=== PATIENT | male | born 1950 | race Caucasian/White ===

== ENCOUNTER 2018-08-22 12:13 | Emergency (ER) | payer MEDICARE, OTHER, SELFPAY ==
[2018-08-22] MEDS: SODIUM CHLORIDE 0.9% 1,000 ML 1000 ML IV ×2 (12:15→13:46)
--- NOTE | 2018-08-22 12:17 | ED.SYNCOPE ---
HPI - Syncope General Chief Complaint: Syncope Stated Complaint: Syncopal Time Seen by Provider: 08/22/18 12:15 Source: patient and EMS Mode of arrival: EMS Limitations: no limitations History of Present Illness HPI narrative: 67-year-old male smoker presents with by EMS for evaluation of a syncopal episode. The patient was at the [facility] and had just had a large episode of diarrhea and stood up quickly and then had a syncopal episode. He admittedly had not had much water over the past day or 2 and has been feeling parched. He denies any chest pain or shortness of breath. He denies any injuries as a consequence of the fall. MD complaint: loss of consciousness and felt faint Onset (ago): minute(s) -: second(s) Prodromal symptoms: vision changes and lightheaded Witnessed: no Context: standing up Injuries sustained associated with event: none Current symptoms: none Related Data Home Medications Medication Instructions Recorded Confirmed CYANOCOBALAMIN (VITAMIN B-12) 1,000 mcg PO BID #0 12/05/10 (Vitamin B-12) FOLIC ACID (#FOLIC ACID) 800 mcg PO Q DAY #0 12/05/10 FOLIC ACID/VIT A/VIT B1/VIT 1 tab PO Q DAY #0 12/05/10 (#MULTIVITAMIN) lisinopril 20 mg PO 08/22/18 Previous Rx's Medication Instructions Recorded trazodone 1 tab PO HS #90 tab 03/06/17 hydroxyzine pamoate 50 mg capsule 50 mg PO TID #90 cap 09/19/17 hydrochlorothiazide 25 mg tablet 12.5 mg PO QDAY #90 tab 10/25/17 labetalol 300 mg tablet 300 mg PO BID #180 tab 06/23/18 levothyroxine 50 mcg tablet 50 mcg PO QAM #90 tab 06/23/18 Allergies Allergy/AdvReac Type Severity Reaction Status Date / Time No Known Drug Allergies Allergy Verified 08/22/18 15:18 Review of Systems Constitutional Denies chills, Denies fever(s), Denies lethargy and Reports weakness Eyes Denies change in vision, Denies eye discharge, Denies irritation and Denies loss of vision ENT Ears, Nose, Mouth, and Throat: Denies change in voice, Denies neck pain and Denies sore throat Cardiovascular Denies chest pain, Denies irregular heart rhythm, Denies lightheadedness, Denies palpitations, Denies dyspnea, Denies dyspnea on exertion and Denies orthopnea Respiratory Denies cough, Denies dyspnea, Denies dyspnea on exertion and Denies wheezing Gastrointestinal Gastrointestinal: Denies abdominal pain, Denies change in bowel habits, Denies diarrhea, Denies nausea and Denies vomiting Genitourinary Denies hematuria, Denies flank pain, Denies urinary incontinence and Denies urinary urgency Musculoskeletal Denies neck pain Integumentary/Breasts Denies pruritus, Denies erythema, Denies rash and Denies wounds Neurologic Denies confusion, Denies loss of vision and Reports weakness Psychiatric Denies anxiety, Denies confusion, Denies depression, Denies homicidal ideation and Denies suicidal ideation Endocrine Denies palpitations Hematologic/Lymphatic Denies easy bruising Allergic/Immunologic Denies wheezing PFSH Social History Smoking Status: Current every day smoker Social History Smoking Status: Current every day smoker Exam Narrative Exam Narrative: GENERAL: 67-year-old male appears stated age, no obvious significant distress HEAD: Atraumatic. Normocephalic. No temporal or scalp tenderness. EYES: Pupils equal round and reactive. Extraocular motions intact. No scleral icterus. No injection or drainage. ENT: Dry mucous membranes Nose without bleeding, purulent drainage or septal hematoma. Throat without erythema, tonsillar hypertrophy or exudate. Uvula midline. Airway patent. NECK: Trachea midline. No JVD or lymphadenopathy. Supple, nontender, no meningeal signs. CARDIOVASCULAR: Regular rate and rhythm without murmurs, gallops, or rubs. RESPIRATORY: Clear to auscultation. Breath sounds equal bilaterally. No wheezes, rales, or rhonchi. GASTROINTESTINAL: Abdomen soft, non-tender, nondistended. No hepato-splenomegaly, or palpable masses. No guarding. EXTREMITIES: No clubbing, cyanosis, or edema. No joint tenderness, effusion, or edema noted. BACK: Nontender without deformity or crepitance. No flank tenderness. NEURO: AOx3. SKIN: No rash or erythema. Initial Vital Signs Initial Vital Signs: Vital Signs Temperature 98.3 F 08/22/18 12:20 Pulse Rate 88 08/22/18 12:20 Respiratory Rate 08/22/18 12:20 Blood Pressure 103/71 08/22/18 12:20 Pulse Oximetry 95 08/22/18 12:20 Course Orders Ordered: ED Orders 08/22/18 12:16 EKG-12 Lead Stat 08/22/18 12:45 Complete Blood Count AUTO DIFF Stat Comprehensive Metabolic Panel Stat Magnesium Stat Troponin & CK Cardiac Panel Stat Discontinued Medications Sodium Chloride (Normal Saline 0.9%) 1,000 mls @ 1,000 mls/hr IV BOLUS ONE Stop: 08/22/18 13:15 Last Infusion: 08/22/18 13:46 Dose: 0 mls/hr Admin: 08/22/18 12:15 Dose: 1,000 mls/hr Sodium Chloride (Normal Saline 0.9%) 1,000 mls @ 1,000 mls/hr IV BOLUS ONE Stop: 08/22/18 14:21 Last Infusion: 08/22/18 15:19 Dose: 0 mls/hr Admin: 08/22/18 13:46 Dose: 1,000 mls/hr Reevaluation(s) Reevaluation #1: Patient feels a near complete resolution of symptoms after fluids Vital Signs - 8 hr 08/22/18 12:20 08/22/18 12:41 08/22/18 13:05 Temperature 98.3 F Pulse Rate 88 88 86 Respiratory Rate 19 19 14 Blood Pressure 103/71 Blood Pressure [Left Arm] 111/66 103/60 Pulse Oximetry 95 95 08/22/18 14:55 08/22/18 15:15 Temperature Pulse Rate 83 94 H Respiratory Rate 12 18 Blood Pressure 129/66 Blood Pressure [Left Arm] 115/62 Pulse Oximetry 97 99 MDM - Syncope Lab Data Result diagrams: 08/22/18 12:45 08/22/18 12:45 Lab Results 08/22/18 08/22/18 Range/Units 12:45 12:45 WBC 12.7 H (4.5-11.0) X10^3/uL RBC 5.39 (4.5-5.9) X10^6/uL Hgb 15.2 (13.5-17.5) g/dL Hct 47.3 (41-53) % MCV 87.8 (80-100) fL MCH 28.2 (26-34) PG MCHC 32.1 (30-36) % RDW 14.7 (11.6-14.8) % Plt Count 260 (150-400) X10^3/uL Neut % (Auto) 88.6 H (50-75) % Lymph % (Auto) 3.6 L (25-40) % [place] % (Auto) 6.7 (3-14) % Eos % (Auto) 0.7 L (2-4) % Baso % (Auto) 0.4 (0-2) % Neut # (Auto) 58054 H (0762-2167) /uL Lymph # (Auto) 500 L (7875-2676) /uL [place] # (Auto) 800 (0-900) /uL Eos # (Auto) 100 (0-450) /uL Baso # (Auto) 0 (0-100) /uL Sodium 143 (137-145) mmol/L Potassium 4.9 (3.4-5.1) mmol/L Chloride 112 H (98-107) mmol/L Carbon Dioxide 20 L (22-32) mmol/L BUN 20 (9-20) mg/dL Creatinine 2.10 H (0.66-1.25) mg/dL Estimated GFR 31.6 L (>60) mL/min BUN/Creatinine Ratio 9.5 (6-22) Glucose 116 H (80-110) mg/dL Calcium 9.1 (8.4-10.2) mg/dL Magnesium 1.9 (1.6-2.3) mg/dL Total Bilirubin 1.1 (0.2-1.3) mg/dL AST 21 (17-59) IU/L ALT 14 L (21-72) IU/L Alkaline Phosphatase 58 (38-126) U/L Total Creatine Kinase 46 L (55-170) U/L CK-MB (CK-2) TNP CK-MB (CK-2) Rel Index TNP Troponin I < 0.012 (0.01-0.034) ng/mL Total Protein 8.6 H (6.3-8.2) g/dL Albumin 4.5 (3.5-5.0) g/dL Globulin 4.1 (1.7-4.1) g/dL Albumin/Globulin Ratio 1.1 (1.0-2.8) MDM Narrative Medical decision making narrative: Patient with syncopal episode after episode of diarrhea and standing up quickly. Clinically dehydrated with a bump in his creatinine. 2 L of fluid brings patient back to clinical background, stable orthostatics. Discharge Plan Departure Patient Disposition: Home Clinical Impression: Diarrhea Qualifiers: Diarrhea type: unspecified type Qualified Code(s): R19.7 - Diarrhea, unspecified Syncope Qualifiers: Syncope type: unspecified Qualified Code(s): R55 - Syncope and collapse Discharge Date/Time: 08/22/18 15:45 Interventions: ED Discharge Assessment Last Done: 08/22/18 15:15 Instructions: DI for Syncope in Adults (Fainting) Activity Restrictions/Additional Instructions: 1. Drink plenty of fluids with frequent small sips. 2. For the next 24 hours a clear liquid diet is advised. After that please employ a brat diet which would include bananas, rice, apples, toast. 3. Please take medications as directed. 4. Please follow-up with your doctor in the next 1-2 days. Call the office for an appointment. 5. Please return to the emergency Department for any worsening or persistent symptoms, such as increasing pain or fever. Prescriptions: No Action CYANOCOBALAMIN (VITAMIN B-12) (Vitamin B-12) 1,000 mcg PO BID Qty: 0 RF: 0 FOLIC ACID (#FOLIC ACID) 800 mcg PO Q DAY Qty: 0 RF: 0 FOLIC ACID/VIT A/VIT B1/VIT (#MULTIVITAMIN) 1 tab PO Q DAY Qty: 0 RF: 0 trazodone 100 MG tablet 1 tab PO HS Qty: 90 RF: 1 hydroxyzine pamoate [Vistaril] 50 mg capsule 50 mg PO TID Qty: 90 RF: 1 hydrochlorothiazide 25 mg tablet 12.5 mg PO QDAY Qty: 90 RF: 1 labetalol 300 mg tablet 300 mg PO BID Qty: 180 RF: 0 levothyroxine 50 mcg tablet 50 mcg PO QAM Qty: 90 RF: 0 lisinopril 20 mg tablet 20 mg PO RF: 0 Referrals: Aguila Solo MD [Primary Care Provider] -
[2018-08-22 12:20] VITALS: BP 103/71; PULSE 88; RESP 19; TEMP 36.8; O2SAT 95; BMI 32.8
[2018-08-22 12:41] VITALS: BP 111/66; PULSE 88; RESP 19; O2SAT 95
[2018-08-22 13:05] VITALS: BP 103/60; PULSE 86; RESP 14
[2018-08-22 13:06] LABS: Add Manual Diff / Slide Review NO; Basophils Absolute Auto 0 /uL (0-100); Basophils Percent Auto 0.4 % (0-2); Eosinophils Absolute Auto 100 /uL (0-450); Eosinophils Percent Auto 0.7 % (2-4); Hematocrit 47.3 % (41-53); Hemoglobin 15.2 g/dL (13.5-17.5); Lymphocytes Absolute Auto 500 /uL (1100-4500); Lymphocytes Percent Auto 3.6 % (25-40); Mean Corpuscular HGB Conc 32.1 % (30-36); Mean Corpuscular Hemoglobin 28.2 PG (26-34); Mean Corpuscular Volume 87.8 fL (80-100); Monocytes Absolute Auto 800 /uL (0-900); Monocytes Percent Auto 6.7 % (3-14); Neutrophils Absolute Auto 11300 /uL (1500-7000); Neutrophils Percent Auto 88.6 % (50-75); Platelet Count 260 X10^3/uL (150-400); Red Blood Cell Count 5.39 X10^6/uL (4.5-5.9); Red Cell Distribution Width 14.7 % (11.6-14.8); White Blood Cell Count 12.7 X10^3/uL (4.5-11.0)
[2018-08-22 13:10] LABS: Alanine Aminotransferase 14 IU/L (21-72); Albumin 4.5 g/dL (3.5-5.0); Albumin Globulin Ratio 1.1 (1.0-2.8); Alkaline Phosphatase 58 U/L (38-126); Aspartate Aminotransferase 21 IU/L (17-59); BUN Creatinine Ratio 9.5 (6-22); Bilirubin Total 1.1 mg/dL (0.2-1.3); Blood Urea Nitrogen 20 mg/dL (9-20); Calcium 9.1 mg/dL (8.4-10.2); Carbon Dioxide 20 mmol/L (22-32); Chloride 112 mmol/L (98-107); Creatine Kinase 46 U/L (55-170); Estimated Glomerular Filt Rate 31.6 mL/min (>60); Globulin 4.1 g/dL (1.7-4.1); Glucose 116 mg/dL (80-110); HEMOLYSIS 27 (0-50); Magnesium 1.9 mg/dL (1.6-2.3); Potassium 4.9 mmol/L (3.4-5.1); Sodium 143 mmol/L (137-145); Total Protein 8.6 g/dL (6.3-8.2)
[2018-08-22 13:22] LABS: Troponin I < 0.012 ng/mL (0.01-0.034)
[2018-08-22 14:55] VITALS: BP 115/62; PULSE 83; RESP 12; O2SAT 97
--- NOTE | 2018-08-22 15:07 | ED_ITS ---
HPI - Syncope General Chief Complaint: Syncope Stated Complaint: Syncopal Time Seen by Provider: 08/22/18 12:15 Source: patient and EMS Mode of arrival: EMS Limitations: no limitations History of Present Illness HPI narrative: 67-year-old male smoker presents with by EMS for evaluation of a syncopal episode. The patient was at the [facility] and had just had a large episode of diarrhea and stood up quickly and then had a syncopal episode. He admittedly had not had much water over the past day or 2 and has b een feeling parched. He denies any chest pain or shortness of breath. He denies any injuries as a consequence of the fall. MD complaint: loss of consciousness and felt faint Onset (ago): minute(s) -: second(s) Prodromal symptoms: vision changes and lightheaded Witnessed: no Context: standing up Injuries sustained associated with event: none Current symptoms: none Related Data Home Medications Medication Instructions Recorded Confirmed CYANOCOBALAMIN (VITAMIN B-12) 1,000 mcg PO BID #0 12/05/10 (Vitamin B-12) FOLIC ACID (#FOLIC ACID) 800 mcg PO Q DAY #0 12/05/10 FOLIC ACID/VIT A/VIT B1/VIT 1 tab PO Q DAY #0 12/05/10 (#MULTIVITAMIN) lisinopril 20 mg PO 08/22/18 Previous Rx's Medication Instructions Recorded trazodone 1 tab PO HS #90 tab 03/06/17 hydroxyzine pamoate 50 mg capsule 50 mg PO TID #90 cap 09/19/17 hydrochlorothiazide 25 mg tablet 12.5 mg PO QDAY #90 tab 10/25/17 labetalol 300 mg tablet 300 mg PO BID #180 tab 06/23/18 levothyroxine 50 mcg tablet 50 mcg PO QAM #90 tab 06/23/18 Allergies Allergy/AdvReac Type Severity Reaction Status Date / Time No Known Drug Allergies Allergy Verified 08/22/18 15:18 Review of Systems Constitutional Denies chills, Denies fever(s), Denies lethargy and Reports weakness Eyes Denies change in vision, Denies eye discharge, Denies irritation and Denies loss of vision ENT Ears, Nose, Mouth, and Throat: Denies change in voice, Denies neck pain and Denies sore throat Cardiovascular Denies chest pain, Denies irregular heart rhythm, Denies lightheadedness, Denies palpitations, Denies dyspnea, Denies dyspnea on exertion and Denies orthopnea Respiratory Denies cough, Denies dyspnea, Denies dyspnea on exertion and Denies wheezing Gastrointestinal Gastrointestinal: Denies abdominal pain, Denies change in bowel habits, Denies diarrhea, Denies nausea and Denies vomiting Genitourinary Denies hematuria, Denies flank pain, Denies urinary incontinence and Denies urinary urgency Musculoskeletal Denies neck pain Integumentary/Breasts Denies pruritus, Denies erythema, Denies rash and Denies wounds Neurologic Denies confusion, Denies loss of vision and Reports weakness Psychiatric Denies anxiety, Denies confusion, Denies depression, Denies homicidal ideation and Denies suicidal ideation Endocrine Denies palpitations Hematologic/Lymphatic Denies easy bruising Allergic/Immunologic Denies wheezing PFSH Social History Smoking Status: Current every day smoker Social History Smoking Status: Current every day smoker Exam Narrative Exam Narrative: GENERAL: 67-year-old male appears stated age, no obvious significant distress HEAD: Atraumatic. Normocephalic. No temporal or scalp tenderness. EYES: Pupils equal round and reactive. Extraocular motions intact. No scleral icterus. No injection or drainage. ENT: Dry mucous membranes Nose without bleeding, purulent drainage or septal hematoma. Throat without erythema, tonsillar hypertrophy or exudate. Uvula midline. Airway patent. NECK: Trachea midline. No JVD or lymphadenopathy. Supple, nontender, no meningeal signs. CARDIOVASCULAR: Regular rate and rhythm without murmurs, gallops, or rubs. RESPIRATORY: Clear to auscultation. Breath sounds equal bilaterally. No wheezes, rales, or rhonchi. GASTROINTESTINAL: Abdomen soft, non-tender, nondistended. No hepato-splenomegaly , or palpable masses. No guarding. EXTREMITIES: No clubbing, cyanosis, or edema. No joint tenderness, effusion, or edema noted. BACK: Nontender without deformity or crepitance. No flank tenderness. NEURO: AOx3. SKIN: No rash or erythema. Initial Vital Signs Initial Vital Signs: Vital Signs Temperature 98.3 F 08/22/18 12:20 Pulse Rate 88 08/22/18 12:20 Respiratory Rate 19 08/22/18 12:20 Blood Pressure 103/71 08/22/18 12:20 Pulse Oximetry 95 08/22/18 12:20 Course Orders Ordered: ED Orders 08/22/18 12:16 EKG-12 Lead Stat 08/22/18 12:45 Complete Blood Count AUTO DIFF Stat Comprehensive Metabolic Panel Stat Magnesium Stat Troponin & CK Cardiac Panel Stat Discontinued Medications Sodium Chloride (Normal Saline 0.9%) 1,000 mls @ 1,000 mls/hr IV BOLUS ONE Stop: 08/22/18 13:15 Last Infusion: 08/22/18 13:46 Dose: 0 mls/hr Admin: 08/22/18 12:15 Dose: 1,000 mls/hr Sodium Chloride (Normal Saline 0.9%) 1,000 mls @ 1,000 mls/hr IV BOLUS ONE Stop: 08/22/18 14:21 Last Infusion: 08/22/18 15:19 Dose: 0 mls/hr Admin: 08/22/18 13:46 Dose: 1,000 mls/hr Reevaluation(s) Reevaluation #1: Patient feels a near complete resolution of symptoms after fluids Vital Signs - 8 hr 08/22/18 12:20 08/22/18 12:41 08/22/18 13:05 Temperature 98.3 F Pulse Rate 88 88 86 Respiratory Rate 19 19 14 Blood Pressure 103/71 Blood Pressure [Left Arm] 111/66 103/60 Pulse Oximetry 95 95 08/22/18 14:55 08/22/18 15:15 Temperature Pulse Rate 83 94 H Respiratory Rate 12 18 Blood Pressure 129/66 Blood Pressure [Left Arm] 115/62 Pulse Oximetry 97 99 MDM - Syncope Lab Data Result diagrams: 08/22/18 12:45 08/22/18 12:45 Lab Results 08/22/18 08/22/18 Range/Units 12:45 12:45 WBC 12.7 H (4.5-11.0) X10^3/uL RBC 5.39 (4.5-5.9) X10^6/uL Hgb 15.2 (13.5-17.5) g/dL Hct 47.3 (41-53) % MCV 87.8 (80-100) fL MCH 28.2 (26-34) PG MCHC 32.1 (30-36) % RDW 14.7 (11.6-14.8) % Plt Count 260 (150-400) X10^3/uL Neut % (Auto) 88.6 H (50-75) % Lymph % (Auto) 3.6 L (25-40) % [place] % (Auto) 6.7 (3-14) % Eos % (Auto) 0.7 L (2-4) % Baso % (Auto) 0.4 (0-2) % Neut # (Auto) 64509 H (6331-3103) /uL Lymph # (Auto) 500 L (3348-7292) /uL [place] # (Auto) 800 (0-900) /uL Eos # (Auto) 100 (0-450) /uL Baso # (Auto) 0 (0-100) /uL Sodium 143 (137-145) mmol/L Potassium 4.9 (3.4-5.1) mmol/L Chloride 112 H (98-107) mmol/L Carbon Dioxide 20 L (22-32) mmol/L BUN 20 (9-20) mg/dL Creatinine 2.10 H (0.66-1.25) mg/dL Estimated GFR 31.6 L (>60) mL/min BUN/Creatinine Ratio 9.5 (6-22) Glucose 116 H (80-110) mg/dL Calcium 9.1 (8.4-10.2) mg/dL Magnesium 1.9 (1.6-2.3) mg/dL Total Bilirubin 1.1 (0.2-1.3) mg/dL AST 21 (17-59) IU/L ALT 14 L (21-72) IU/L Alkaline Phosphatase 58 (38-126) U/L Total Creatine Kinase 46 L (55-170) U/L CK-MB (CK-2) TNP CK-MB (CK-2) Rel Index TNP Troponin I < 0.012 (0.01-0.034) ng/mL Total Protein 8.6 H (6.3-8.2) g/dL Albumin 4.5 (3.5-5.0) g/dL Globulin 4.1 (1.7-4.1) g/dL Albumin/Globulin Ratio 1.1 (1.0-2.8) MDM Narrative Medical decision making narrative: Patient with syncopal episode after episode of diarrhea and standing up quickly. Clinically dehydrated with a bump in his creatinine. 2 L of fluid brings patient back to clinical background, stable orthostatics. Discharge Plan Departure Patient Disposition: Home Clinical Impression: Diarrhea Qualifiers: Diarrhea type: unspecified type Qualified Code(s): R19.7 - Diarrhea, unspecified Syncope Qualifiers: Syncope type: unspecified Qualified Code(s): R55 - Syncope and collapse Discharge Date/Time: 08/22/18 15:45 Interventions: ED Discharge Assessment Last Done: 08/22/18 15:15 Instructions: DI for Syncope in Adults (Fainting) Activity Restrictions/Additional Instructions: 1. Drink plenty of fluids with frequent small sips. 2. For the next 24 hours a clear liquid diet is advised. After that please employ a brat diet which would include bananas, rice, apples, toast. 3. Please take medications as directed. 4. Please follow-up with your doctor in the next 1-2 days. Call the office for an appointment. 5. Please return to the emergency Department for any worsening or persistent symptoms, such as increasing pain or fever. Prescriptions: No Action CYANOCOBALAMIN (VITAMIN B-12) (Vitamin B-12) 1,000 mcg PO BID Qty: 0 RF: 0 FOLIC ACID (#FOLIC ACID) 800 mcg PO Q DAY Qty: 0 RF: 0 FOLIC ACID/VIT A/VIT B1/VIT (#MULTIVITAMIN) 1 tab PO Q DAY Qty: 0 RF: 0 trazodone 100 MG tablet 1 tab PO HS Qty: 90 RF: 1 hydroxyzine pamoate [Vistaril] 50 mg capsule 50 mg PO TID Qty: 90 RF: 1 hydrochlorothiazide 25 mg tablet 12.5 mg PO QDAY Qty: 90 RF: 1 labetalol 300 mg tablet 300 mg PO BID Qty: 180 RF: 0 levothyroxine 50 mcg tablet 50 mcg PO QAM Qty: 90 RF: 0 lisinopril 20 mg tablet 20 mg PO RF: 0 Referrals: Aguila Solo MD [Primary Care Provider] -
[2018-08-22 15:15] VITALS: BP 129/66; PULSE 94; RESP 18; O2SAT 99
--- NOTE | 2018-08-22 15:37 | PC.NURSE ---
Pt is ambulating successfully with student RN denies dizziness
== END 2018-08-22 15:45 | disposition home or self-care (01) ==
PROVIDERS: Emergency Provider Emergency Medicine; Family Provider Family Medicine; PCP Family Medicine
DX: R55 Syncope and collapse (principal); R19.7 Diarrhea, unspecified
CPT/HCPCS: 36415; 80053; 82550; 83735; 84484; 85025; 93005; 93010; 96360; 96361; 99283; 99284

== ENCOUNTER → 2018-10-21 12:02 | Outpatient (CLI) | payer MEDICARE, OTHER, SELFPAY ==
[2018-10-21 12:38] LABS: Alanine Aminotransferase 19 IU/L (21-72); Albumin 4.2 g/dL (3.5-5.0); Albumin Globulin Ratio 1.2 (1.0-2.8); Alkaline Phosphatase 53 U/L (38-126); Aspartate Aminotransferase 33 IU/L (17-59); BUN Creatinine Ratio 13.6 (6-22); Bilirubin Total 0.9 mg/dL (0.2-1.3); Blood Urea Nitrogen 15 mg/dL (9-20); Calcium 9.4 mg/dL (8.4-10.2); Carbon Dioxide 29 mmol/L (22-32); Chloride 101 mmol/L (98-107); Estimated Glomerular Filt Rate > 60.0 mL/min (>60); Globulin 3.6 g/dL (1.7-4.1); Glucose 112 mg/dL (80-110); HEMOLYSIS < 15 (0-50); Potassium 3.8 mmol/L (3.4-5.1); Sodium 139 mmol/L (137-145); Total Protein 7.8 g/dL (6.3-8.2)
[2018-10-21 13:28] LABS: Free T4, Direct Thyroxine 1.12 ng/dL (0.78-2.19)
[2018-10-21 13:42] LABS: Thyroid Stimulating Hormone 4.33 uIU/mL (0.47-4.68)
[2018-10-21 15:17] LABS: Vitamin D 25 Hydroxy (D3) 26.6 ng/mL (30.0-100.0)
== END ==
PROVIDERS: PCP Family Medicine; Visit Provider Student in an Organized Health Care Education/Training Program
DX: E03.9 Hypothyroidism, unspecified (principal); E55.9 Vitamin D deficiency, unspecified; F10.20 Alcohol dependence, uncomplicated; N17.9 Acute kidney failure, unspecified
CPT/HCPCS: 36415; 80053; 82306; 84439; 84443

== ENCOUNTER → 2020-01-20 16:55 | Outpatient (CLI) | payer MEDICARE, OTHER, SELFPAY ==
[2020-01-20 17:53] LABS: Add Manual Diff / Slide Review NO; Basophils Absolute Auto 100 /uL (0-100); Basophils Percent Auto 0.8 % (0-2); Eosinophils Absolute Auto 100 /uL (0-450); Eosinophils Percent Auto 0.7 % (2-4); Hemoglobin 15.5 g/dL (13.5-17.5); Lymphocytes Absolute Auto 2000 /uL (1100-4500); Lymphocytes Percent Auto 23.1 % (25-40); Mean Corpuscular HGB Conc 33.8 % (30-36); Mean Corpuscular Hemoglobin 31.7 PG (26-34); Mean Corpuscular Volume 93.9 fL (80-100); Monocytes Absolute Auto 1000 /uL (0-900); Monocytes Percent Auto 11.7 % (3-14); Neutrophils Absolute Auto 5400 /uL (1500-7000); Neutrophils Percent Auto 63.7 % (50-75); Platelet Count 202 X10^3/uL (150-400); Red Blood Cell Count 4.89 X10^6/uL (4.5-5.9); Red Cell Distribution Width 18.4 % (11.6-14.8); White Blood Cell Count 8.5 X10^3/uL (4.5-11.0)
[2020-01-20 18:11] LABS: Albumin 3.6 g/dL (3.5-5.0); Alkaline Phosphatase 81 U/L (38-126); Bilirubin Total 1.2 mg/dL (0.2-1.3); Blood Urea Nitrogen 7 mg/dL (9-20); Calcium 8.4 mg/dL (8.4-10.2); Carbon Dioxide 33 mmol/L (22-32); Chloride 95 mmol/L (98-107); Estimated Glomerular Filt Rate > 60.0 mL/min (>60); Globulin 3.5 g/dL (1.7-4.1); Glucose 120 mg/dL (80-110); HEMOLYSIS 107 (0-50); Magnesium 1.7 mg/dL (1.6-2.3); Sodium 134 mmol/L (137-145); Total Protein 7.1 g/dL (6.3-8.2)
[2020-01-20 18:12] LABS: Alanine Aminotransferase 40 IU/L (<50)
[2020-01-20 18:45] LABS: Ferritin 61 ng/mL (18-464)
[2020-01-20 18:46] LABS: Thyroid Stimulating Hormone 3.15 uIU/mL (0.47-4.68)
[2020-01-23 00:07] LABS: Vitamin B1 164.3 nmol/L (66.5-200.0)
== END ==
PROVIDERS: Referring Provider Family Medicine; Visit Provider Family Medicine
DX: B18.2 Chronic viral hepatitis C (principal)
CPT/HCPCS: 36415; 80053; 82728; 83735; 84425; 84443; 85025